=== PATIENT | male | born 1945 | race Caucasian/White ===

== ENCOUNTER 2017-09-03 09:37 | Emergency (ER) | payer MEDICARE ==
[~2017-09-03] VITALS: Ht 180.3 cm; Wt 117.7 kg
[~2017-09-03 09:37] MED LIST: ALLO300 PO; AMLO10 PO; BETA80TA PO; CILO100T PO; COUM5TAB PO; LANTUSP SC; LEVO50TA51 PO; LISI-366 PO; NEUR400C PO; NOVOLOGP2 SQ; PROT40TA PO; VITA100018 PO; WARF7.5 PO; [UNRECOGNIZED DRUG - CODE] PO
[2017-09-03 09:40] VITALS: BP 105/52; PULSE 82; RESP 18; TEMP 98.5
[2017-09-03] MEDS ORDERED: SODIUM CHLORIDE 0.9% FLUSH 10 ML FLUSH IVF PRN (10:00)
--- NOTE | 2017-09-03 10:06 | PD ---
HPI Chief Complaint: Bleeding Time Seen by Provider: 09:51 Travel History International Travel<30 days: No Contact w/Intl Traveler<30days: No Traveled to known affect area: No History of Present Illness HPI This patient complains of rectal bleeding. Duration 2 days. It's mostly when he wipes. He has been constipated for several days and had been straining to have a bowel movement. 2 days ago he had a large bowel movement and shortly after that developed a bright red rectal bleeding. Severity is mild to moderate. No presyncopal symptoms. No prior history of GI bleeding. He does take Coumadin for A. fib. If he Has a cough or presses deeply on his abdomen he has discomfort but otherwise no abdominal pain. He had a colonoscopy 4 years ago. PFSH Past Medical History Hx Anticoagulant Therapy: Yes Arthritis: Yes Asthma: No Atrial Fibrillation: Yes Autoimmune Disease: No Blood Disorders: No Anxiety: No Depression: No Heart Rhythm Problems: Yes ("FAST, IRREGULAR HEART BEAT,...THEY HAD TO SHOCK ME ") Cancer: Yes (SKIN) Cardiac Catheterization: Yes Cardiovascular Problems: Yes High Cholesterol: Yes Chest Pain: Yes Congestive Heart Failure: No COPD: No Cerebrovascular Accident: Yes Coronary Artery Disease: Yes Diabetes: Yes Patient Takes Glucophage: No Diminished Hearing: No Endocrine: Yes Gastrointestinal Disorders: Yes (ACID REFLUX) GERD: Yes Glaucoma: No Genitourinary: No Headaches: No Hepatitis: No Hiatal Hernia: No Hypertension: Yes Immune Disorder: No Kidney Stones: Yes Musculoskeletal: Yes (ARTHRITIS) Neurologic: Yes (STROKE 2001) Psychiatric: No Reproductive: No Respiratory: Yes (COPD) Myocardial Infarction: Yes Renal Failure: No Seizures: No Sickle Cell Disease: No Sleep Apnea: No Thyroid Disease: Yes (HYPOTHYROIDISM) Ulcer: No Influenza Vaccination: Yes Past Surgical History Abdominal Surgery: Yes (REPAIR RECTAL FISTULA, CHOLECYSTECTOMY 2005) AICD: No Appendectomy: No Cardiac Surgery: Yes (CABG 4 VESSEL 2003) Cholecystectomy: No Coronary Artery Bypass Graft: Yes (4 VESSEL) Ear Surgery: No Endocrine Surgery: No Eye Surgery: Yes (BILATERAL CATARACT SURGERY) Genitourinary Surgery: Yes (LITHOTRIPSY FOR KIDNEY STONES) Gynecologic Surgery: No Joint Replacement: Yes (LEFT HIP REPLACEMENT) Neurologic Surgery: No Oral Surgery: No Pacemaker: No Thoracic Surgery: No Other Surgery: Yes Social History Alcohol Use: No Tobacco Use: No Substance Use: No Allergies-Medications (Allergen,Severity, Reaction): Coded Allergies: clopidogrel (Unverified Allergy, Severe, Itching, HIVES, 09/03/17) simvastatin (Unverified Allergy, Severe, COULDN'T WALK OR STAND, 09/03/17) RABDOMYELOSIS *MDRO Multi-Drug Resistant Organism (Verified Allergy, Unknown, 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 Lantus Inj (Insulin Glargine) 1,000 Unit/10 Ml Vial 22 Units SQ HS Vitamin D3 (Cholecalciferol) 1,000 Unit Cap 1,000 Units PO BID Ranitidine (Ranitidine HCl) 150 Mg Tab 150 Mg PO BID Gabapentin 400 Mg Cap 400 Cap PO TID Amlodipine (Amlodipine Besylate) 10 Mg Tab 10 Mg PO HS Warfarin 10 Mg Tab 10 Mg PO MONDAYS Warfarin 7.5 Mg Tab 7.5 Mg PO EVERY DAY BUT SATURDAY Lisinopril 40 Mg Tab 40 Mg PO DAILY Levoxyl (Levothyroxine Sodium) 50 Mcg Tab 50 Mcg PO DAILY Sotalol (Sotalol HCl) 80 Mg Tab 80 Mg PO BID Cilostazol 100 Mg Tab 100 Mg PO BID Review of Systems General / Constitutional: No: Fever Eyes: No: Visual changes HENT: No: Headaches Cardiovascular: No: Chest Pain or Discomfort Respiratory: No: Shortness of Breath Gastrointestinal: Positive: Abdominal Pain, Hematochezia, Constipation Genitourinary: No: Dysuria Musculoskeletal: No: Pain Skin: No Rash Neurologic: No: Weakness Psychiatric: No: Depression Endocrine: No: Polydipsia Hematologic/Lymphatic: No: Easy Bruising Physical Exam Narrative GENERAL: Well-nourished, well-developed patient in no apparent distress. SKIN: Focused skin assessment reveals no rash and nodules. Skin is Warm and dry. HEAD: Atraumatic. Normocephalic. EYES: Pupils equal and round. No scleral icterus. No injection or drainage. ENT: No nasal bleeding or discharge. Mucous membranes pink and moist. NECK: Trachea midline. No JVD. CARDIOVASCULAR: Regular rate and rhythm. No murmur appreciated. RESPIRATORY: No accessory muscle use. Clear to auscultation. Breath sounds equal bilaterally. GASTROINTESTINAL: Abdomen soft, obese without rebound or guarding, minimal diffuse tenderness, nondistended. Hepatic and splenic margins not palpable. MUSCULOSKELETAL: No obvious deformities. No clubbing. No cyanosis. No edema. NEUROLOGICAL: Awake and alert. No obvious cranial nerve deficits. Motor grossly within normal limits. Normal speech. PSYCHIATRIC: Appropriate mood and affect; insight and judgment normal. Rectal: No obvious fissure or bleeding external hemorrhoid. Data Data Last Documented VS Vital Signs Date Time Temp Pulse Resp B/P (MAP) Pulse Ox O2 Delivery O2 Flow Rate FiO2 09/03/17 10:53 78 18 119/55 (76) 98 Room Air 09/03/17 09:40 98.5 Orders Orders Complete Blood Count With Diff (09/03/17 10:00) Comprehensive Metabolic Panel (09/03/17 10:00) Lipase (09/03/17 10:00) Prothrombin Time / Inr (Pt) (09/03/17 10:00) Ecg Monitoring (09/03/17 10:00) Iv Access Insert/Monitor (09/03/17 10:00) Sodium Chloride 0.9% Flush (Ns Flush) (09/03/17 10:00) Labs Laboratory Tests Test 09/03/17 10:20 White Blood Count 15.1 TH/MM3 Red Blood Count 3.88 MIL/MM3 Hemoglobin 10.9 GM/DL Hematocrit 34.3 % Mean Corpuscular Volume 88.5 FL Mean Corpuscular Hemoglobin 28.2 PG Mean Corpuscular Hemoglobin Concent 31.8 % Red Cell Distribution Width 15.6 % Platelet Count 144 TH/MM3 Mean Platelet Volume 9.5 FL Neutrophils (%) (Auto) 85.2 % Lymphocytes (%) (Auto) 7.0 % Monocytes (%) (Auto) 5.3 % Eosinophils (%) (Auto) 0.6 % Basophils (%) (Auto) 1.9 % Neutrophils # (Auto) 12.8 TH/MM3 Lymphocytes # (Auto) 1.1 TH/MM3 Monocytes # (Auto) 0.8 TH/MM3 Eosinophils # (Auto) 0.1 TH/MM3 Basophils # (Auto) 0.3 TH/MM3 CBC Comment DIFF FINAL Differential Comment Prothrombin Time 51.3 SEC Prothromb Time International Ratio 4.4 RATIO Blood Urea Nitrogen 44 MG/DL Creatinine 2.70 MG/DL Random Glucose 141 MG/DL Total Protein 7.9 GM/DL Albumin 2.6 GM/DL Calcium Level 8.6 MG/DL Alkaline Phosphatase 87 U/L Aspartate Amino Transf (AST/SGOT) 25 U/L Alanine Aminotransferase (ALT/SGPT) 18 U/L Total Bilirubin 1.0 MG/DL Sodium Level 139 MEQ/L Potassium Level 4.4 MEQ/L Chloride Level 106 MEQ/L Carbon Dioxide Level 24.8 MEQ/L Anion Gap 8 MEQ/L Estimat Glomerular Filtration Rate 23 ML/MIN Lipase 49 U/L MDM Medical Decision Making Medical Screen Exam Complete: Yes Emergency Medical Condition: Yes Medical Record Reviewed: Yes Differential Diagnosis Diverticulosis, GI tumor, internal hemorrhoid, fissure, coagulopathy Narrative Course I have reviewed the patient's electronic medical record. Patient's last hemoglobin was 12 but this was 3 years ago. IV placed CBC shows hemoglobin of 10.9 metabolic profile shows renal insufficiency with creatinine 2.7 LFT's are normal lipase is normal INR on Coumadin is 4.4 Patient has normal vital signs. I will observe him for 2 hours with no bleeding at all. He feels well. I reviewed in detail with his primary physician Dr. Joyner who knows him well. He recommends outpatient follow-up and workup. He will help arrange GI follow- up. He recommends stopping the Coumadin but not acutely reversing it. He has had stroke in the past and has A. fib and will need to be put back on it after this situation is resolved. It will be more challenging to place him back on Coumadin if I give vitamin K. So far bleeding has been minimal. If bleeding becomes brisk or he clinically worsens he will return promptly. Diagnosis Primary Impression: Hematochezia Additional Impressions: Supratherapeutic INR Anemia Qualified Codes: D64.9 - Anemia, unspecified Additional Instructions: The patient was advised to follow up with their physician and return if they worsen. Follow-up with GI physician Stop Coumadin Med/Other Pt SpecificInfo: Other Disposition: 01 DISCHARGE HOME Condition: Stable Kocisko,Eric J. MD Sep 03, 2017 10:06
[2017-09-03] MEDS ORDERED: NOVOLOGP2 SQ (10:09)
[2017-09-03] MEDS ORDERED: WARF-22 PO (10:09)
[2017-09-03] MEDS ORDERED: AMLO10TA2 PO (10:09)
[2017-09-03] MEDS ORDERED: LISI40TA PO (10:09)
[2017-09-03] MEDS ORDERED: LANTUS2P SQ (10:09)
[2017-09-03] MEDS ORDERED: WARF-21 PO (10:09)
[2017-09-03] MEDS ORDERED: RANI150T PO (10:09)
[2017-09-03] MEDS ORDERED: CHOL10008 PO (10:09)
[2017-09-03] MEDS ORDERED: LEVO50TA53 PO (10:09)
[2017-09-03] MEDS ORDERED: GABA400C5 PO (10:09)
[2017-09-03] MEDS ORDERED: SOTA80TA PO (10:09)
[2017-09-03] MEDS ORDERED: CILO100T PO (10:09)
[2017-09-03 10:27] LABS: AUTOMATED NEUTROPHIL # 12.8 TH/MM3 (1.8-7.7); BASOPHIL # 0.3 TH/MM3 (0-0.2); BASOPHIL % 1.9 % (0.0-2.0); EOSINOPHIL # 0.1 TH/MM3 (0-0.4); EOSINOPHIL % 0.6 % (0.0-4.0); HEMATOCRIT 34.3 % (39.0-51.0); LYMPHOCYTE # 1.1 TH/MM3 (1.0-4.8); MEAN CELL VOLUME 88.5 FL (80.0-100.0); MEAN CORPUSCULAR HEMOGLOBIN 28.2 PG (27.0-34.0); MEAN CORPUSCULAR HGB CONC 31.8 % (32.0-36.0); MONO % 5.3 % (0.0-8.0); NEUT % 85.2 % (16.0-70.0); PLATELET COUNT 144 TH/MM3 (150-450); RED BLOOD COUNT 3.88 MIL/MM3 (4.50-5.90); RED CELL DISTRIBUTION WIDTH 15.6 % (11.6-17.2); WHITE BLOOD COUNT 15.1 TH/MM3 (4.0-11.0)
[2017-09-03 10:28] LABS: HEMO FLAGS DIFF FINAL
[2017-09-03 10:41] LABS: CHLORIDE 106 MEQ/L (98-107); POTASSIUM 4.4 MEQ/L (3.5-5.1); SODIUM (NA) 139 MEQ/L (136-145)
[2017-09-03 10:45] LABS: ANION GAP 8 MEQ/L (5-15); BICARBONATE 24.8 MEQ/L (21.0-32.0); BLOOD UREA NITROGEN 44 MG/DL (7-18)
[2017-09-03 10:48] LABS: ALT (GPT) 18 U/L (12-78); AST (GOT) 25 U/L (15-37); GLOMERULAR FILTRATION RATE 23 ML/MIN (>89)
[2017-09-03 10:51] LABS: ALKALINE PHOSPHATASE 87 U/L (45-117)
[2017-09-03 10:53] VITALS: BP 119/55; PULSE 78; RESP 18; O2SAT 98
[2017-09-03 10:56] LABS: INTERNATIONAL NORMALIZED RATIO 4.4 RATIO; PROTHROMBIN TIME - PATIENT 51.3 SEC (9.8-11.6)
[2017-09-03 11:42] VITALS: BP 106/53; PULSE 78; RESP 18; O2SAT 96
== END 2017-09-03 11:56 | disposition home or self-care (01) ==
LOC: PHED 09:37
DX: K92.1 Melena (principal); D64.9 Anemia, unspecified; R79.1 Abnormal coagulation profile; J44.9 Chronic obstructive pulmonary disease, unspecified; I10 Essential (primary) hypertension; E78.00 Pure hypercholesterolemia, unspecified; I48.91 Unspecified atrial fibrillation; I25.10 Atherosclerotic heart disease of native coronary artery without angina pectoris; E11.9 Type 2 diabetes mellitus without complications; M19.90 Unspecified osteoarthritis, unspecified site; Z86.73 Personal history of transient ischemic attack (TIA), and cerebral infarction without residual deficits; Z95.1 Presence of aortocoronary bypass graft; Z79.01 Long term (current) use of anticoagulants; Z79.899 Other long term (current) drug therapy
CPT/HCPCS: 80053; 83690; 85025; 85610; 99283